=== PATIENT | male | born 1935 | race Caucasian/White ===

== ENCOUNTER 2017-08-17 08:27 | Inpatient (IN) | payer MEDICARE ==
[~2017-08-17] VITALS: Ht 180.3 cm; Wt 97.4 kg
[2017-08-17] MEDS ORDERED: NORVASC 10MG10 MG PO (08:37)
[2017-08-17 08:56] LABS: PROTHROMBIN TIME 11.2 SECONDS (9.7-12.8)
[2017-08-17 08:58] LABS: BASO % 0.4 % (0.0-2.0); EOS # 0.3 (0.0-0.7); EOS % 3.2 % (0-4.0); GRAN # 5.9 (1.4-6.5); GRAN % 71.8 % (42.2-75.2); HEMOGLOBIN 12.4 g/dl (13.5-18.0); LYMPH # 1.3 (1.2-3.4); LYMPH % 15.3 % (20.0-51.0); MEAN CELL VOLUME 87 fl (80.0-100.0); MEAN CORPUSCULAR HEMOGLOBIN 29 pg (27.0-31.0); MEAN CORPUSCULAR HGB CONC 34 g/dl (33.0-37.0); MONO # 0.7 (0.1-0.6); MONO % 8.8 % (1.7-9.3); PARTIAL THROMBOPLASTIN TIME 30.7 SECONDS (26.0-37.0); PLATELET COUNT 215 K/mm3 (130-400); RED BLOOD COUNT 4.22 M/mm3 (4.20-5.60); REDCELL DISTRIBUTION WIDTH-CV 14.4 % (11.5-14.5)
[2017-08-17 08:59] LABS: HEMATOCRIT 36.8 % (42.0-52.0)
[2017-08-17 09:08] LABS: ALANINE AMINOTRANSFERASE 82 U/L (21-72); ALBUMIN 3.8 gm/dL (3.5-5.0); ALKALINE PHOSPHATASE 72 U/L (50-136); ANION GAP 12 mmol/L (7-16); AST,SGOT 131 U/L (15-37); BILIRUBIN,TOTAL 0.7 mg/dL (0.0-1.0); BLOOD UREA NITROGEN 22 mg/dL (9-20); CALCIUM 9.1 mg/dL (8.4-10.2); CARBON DIOXIDE 28 mmol/L (22-30); CHLORIDE 101 mmol/L (98-107); CREATININE, serum 1.04 mg/dL (0.66-1.25); GLUCOSE 97 mg/dL (74-106); LIPASE 343 U/L (23-300); POTASSIUM 3.4 mmol/L (3.4-5.0); SODIUM 141 mmol/L (137-145); TOTAL PROTEIN 7.2 gm/dL (6.4-8.2)
[2017-08-17 09:21] LABS: TROPONIN-I < 0.012 ng/mL (0.000-0.034)
[2017-08-17 11:19] VITALS: BP 161/73; PULSE 84; TEMP 99
[2017-08-17] MEDS ORDERED: MULTI VITAMINS1 TAB PO (11:42)
[2017-08-17] MEDS ORDERED: ALEVE 220MG220 MG PO (11:42)
[2017-08-17 17:54] VITALS: BP 151/97; PULSE 74; TEMP 99.1
[2017-08-17 19:39] VITALS: BP 150/59; PULSE 77; TEMP 98.2
[2017-08-18] VITALS (7 sets, daily range): BP systolic 111–154; BP diastolic 52–94; PULSE 65–76; TEMP 97.8–98.8
[2017-08-18 06:48] LABS: BASO % 0.5 % (0.0-2.0); EOS # 0.1 (0.0-0.7); EOS % 1.9 % (0-4.0); GRAN # 3.8 (1.4-6.5); HEMOGLOBIN 10.8 g/dl (13.5-18.0); LYMPH # 1.7 (1.2-3.4); LYMPH % 26.2 % (20.0-51.0); MEAN CELL VOLUME 86 fl (80.0-100.0); MEAN CORPUSCULAR HEMOGLOBIN 29 pg (27.0-31.0); MEAN CORPUSCULAR HGB CONC 34 g/dl (33.0-37.0); MEAN PLATELET VOLUME 9.2 fl (7.4-10.4); MONO # 0.8 (0.1-0.6); MONO % 12.1 % (1.7-9.3); PLATELET COUNT 172 K/mm3 (130-400); RED BLOOD COUNT 3.73 M/mm3 (4.20-5.60); REDCELL DISTRIBUTION WIDTH-CV 14.4 % (11.5-14.5)
[2017-08-18 06:52] LABS: HEMATOCRIT 32.1 % (42.0-52.0)
[2017-08-18 06:59] LABS: ALBUMIN 3.3 gm/dL (3.5-5.0); BILIRUBIN,TOTAL 0.7 mg/dL (0.0-1.0); CALCIUM 7.8 mg/dL (8.4-10.2); CHOLESTEROL RISK RATIO 5.2; CREATININE, serum 0.89 mg/dL (0.66-1.25); MAGNESIUM 1.9 mg/dL (1.6-2.3); POTASSIUM 3.5 mmol/L (3.4-5.0); TOTAL PROTEIN 6.3 gm/dL (6.4-8.2)
[2017-08-19] VITALS (8 sets, daily range): BP systolic 127–145; BP diastolic 56–71; PULSE 60–79; TEMP 97.8–98.7
[2017-08-19 06:35] LABS: BASO % 0.5 % (0.0-2.0); EOS # 0.3 (0.0-0.7); EOS % 4.9 % (0-4.0); GRAN % 50.4 % (42.2-75.2); HEMOGLOBIN 11.8 g/dl (13.5-18.0); LYMPH # 1.7 (1.2-3.4); LYMPH % 28.6 % (20.0-51.0); MEAN CELL VOLUME 87 fl (80.0-100.0); MEAN CORPUSCULAR HEMOGLOBIN 29 pg (27.0-31.0); MEAN CORPUSCULAR HGB CONC 33 g/dl (33.0-37.0); MEAN PLATELET VOLUME 9.1 fl (7.4-10.4); MONO # 0.9 (0.1-0.6); MONO % 15.3 % (1.7-9.3); PLATELET COUNT 195 K/mm3 (130-400); RED BLOOD COUNT 4.12 M/mm3 (4.20-5.60); REDCELL DISTRIBUTION WIDTH-CV 14.3 % (11.5-14.5)
[2017-08-19 06:48] LABS: ALBUMIN 3.6 gm/dL (3.5-5.0); BILIRUBIN,TOTAL 0.4 mg/dL (0.0-1.0); CALCIUM 8.4 mg/dL (8.4-10.2); CREATININE, serum 0.94 mg/dL (0.66-1.25); TOTAL PROTEIN 6.7 gm/dL (6.4-8.2)
[2017-08-19 06:53] LABS: POTASSIUM 3.3 mmol/L (3.4-5.0)
[2017-08-20] VITALS (13 sets, daily range): BP systolic 132–171; BP diastolic 55–107; PULSE 60–114; TEMP 96.6–98.5
[2017-08-20 07:03] LABS: BASO % 0.5 % (0.0-2.0); EOS # 0.4 (0.0-0.7); EOS % 6.9 % (0-4.0); GRAN # 2.9 (1.4-6.5); GRAN % 47.1 % (42.2-75.2); HEMOGLOBIN 12.2 g/dl (13.5-18.0); LYMPH % 32.3 % (20.0-51.0); MEAN CELL VOLUME 87 fl (80.0-100.0); MEAN CORPUSCULAR HEMOGLOBIN 29 pg (27.0-31.0); MEAN CORPUSCULAR HGB CONC 33 g/dl (33.0-37.0); MEAN PLATELET VOLUME 9.2 fl (7.4-10.4); MONO # 0.8 (0.1-0.6); MONO % 12.9 % (1.7-9.3); PLATELET COUNT 212 K/mm3 (130-400); RED BLOOD COUNT 4.23 M/mm3 (4.20-5.60); REDCELL DISTRIBUTION WIDTH-CV 14.2 % (11.5-14.5)
[2017-08-20 07:11] LABS: HEMATOCRIT 36.6 % (42.0-52.0)
[2017-08-20 07:14] LABS: ALBUMIN 3.7 gm/dL (3.5-5.0); BILIRUBIN,TOTAL 0.3 mg/dL (0.0-1.0); CALCIUM 8.3 mg/dL (8.4-10.2); CREATININE, serum 0.96 mg/dL (0.66-1.25); POTASSIUM 3.5 mmol/L (3.4-5.0)
[2017-08-21 03:43] VITALS: BP 144/64; PULSE 70; TEMP 97.9
[2017-08-21 06:57] LABS: HEMOGLOBIN 11.5 g/dl (13.5-18.0); MEAN CELL VOLUME 86 fl (80.0-100.0); MEAN CORPUSCULAR HEMOGLOBIN 29 pg (27.0-31.0); MEAN CORPUSCULAR HGB CONC 34 g/dl (33.0-37.0); MEAN PLATELET VOLUME 9.6 fl (7.4-10.4); PLATELET COUNT 228 K/mm3 (130-400); RED BLOOD COUNT 3.94 M/mm3 (4.20-5.60); REDCELL DISTRIBUTION WIDTH-CV 14.2 % (11.5-14.5)
[2017-08-21 07:03] LABS: ALBUMIN 3.7 gm/dL (3.5-5.0); BILIRUBIN,TOTAL 0.5 mg/dL (0.0-1.0); CALCIUM 8.2 mg/dL (8.4-10.2); CREATININE, serum 0.84 mg/dL (0.66-1.25); POTASSIUM 3.5 mmol/L (3.4-5.0); TOTAL PROTEIN 7.1 gm/dL (6.4-8.2)
[2017-08-21 07:18] LABS: HEMATOCRIT 33.8 % (42.0-52.0)
[2017-08-21 07:42] VITALS: BP 134/96; BP 144/68; PULSE 83; TEMP 98.4
[2017-08-21 09:47] LABS: BAND 22 % (0-10); LYMPHOCYTE 11 % (20.0-51.0); NEUTROPHILS 56 % (42.0-75.2); PLATELET ESTIMATE NORMAL (NORMAL)
[2017-08-21 11:15] VITALS: BP 175/76; BP 175/763; PULSE 78; TEMP 98
[2017-08-21 15:34] VITALS: BP 155/68; PULSE 77; TEMP 98.4
[2017-08-21 20:04] VITALS: BP 158/81; PULSE 84; TEMP 97.7
[2017-08-21 22:25] LABS: HEMOGLOBIN 12.1 g/dl (13.5-18.0); MEAN CELL VOLUME 85 fl (80.0-100.0); MEAN CORPUSCULAR HEMOGLOBIN 29 pg (27.0-31.0); MEAN CORPUSCULAR HGB CONC 34 g/dl (33.0-37.0); MEAN PLATELET VOLUME 9.1 fl (7.4-10.4); PLATELET COUNT 230 K/mm3 (130-400); RED BLOOD COUNT 4.15 M/mm3 (4.20-5.60); REDCELL DISTRIBUTION WIDTH-CV 14.3 % (11.5-14.5)
[2017-08-21 22:26] LABS: HEMATOCRIT 35.4 % (42.0-52.0)
[2017-08-21 22:40] LABS: ALBUMIN 3.6 gm/dL (3.5-5.0); BILIRUBIN,TOTAL 0.8 mg/dL (0.0-1.0); CALCIUM 8.2 mg/dL (8.4-10.2); CREATININE, serum 0.83 mg/dL (0.66-1.25); POTASSIUM 3.3 mmol/L (3.4-5.0); TOTAL PROTEIN 6.8 gm/dL (6.4-8.2)
[2017-08-21 22:49] LABS: BAND 2 % (0-10); LYMPHOCYTE 11 % (20.0-51.0); NEUTROPHILS 85 % (42.0-75.2)
[2017-08-21 22:50] LABS: HYPOCHROMIA 1+; PLATELET ESTIMATE NORMAL (NORMAL)
[2017-08-22] VITALS (11 sets, daily range): BP systolic 109–151; BP diastolic 41–69; PULSE 58–87; TEMP 98–99.5
[2017-08-22 06:55] LABS: HEMOGLOBIN 10.8 g/dl (13.5-18.0); MEAN CELL VOLUME 88 fl (80.0-100.0); MEAN CORPUSCULAR HEMOGLOBIN 29 pg (27.0-31.0); MEAN CORPUSCULAR HGB CONC 33 g/dl (33.0-37.0); MEAN PLATELET VOLUME 9.5 fl (7.4-10.4); PLATELET COUNT 228 K/mm3 (130-400); RED BLOOD COUNT 3.74 M/mm3 (4.20-5.60); REDCELL DISTRIBUTION WIDTH-CV 14.6 % (11.5-14.5)
[2017-08-22 07:16] LABS: BILIRUBIN,TOTAL 0.5 mg/dL (0.0-1.0); CALCIUM 7.8 mg/dL (8.4-10.2); CREATININE, serum 0.88 mg/dL (0.66-1.25); POTASSIUM 3.5 mmol/L (3.4-5.0); TOTAL PROTEIN 6.5 gm/dL (6.4-8.2)
[2017-08-22 07:17] LABS: HEMATOCRIT 32.8 % (42.0-52.0)
[2017-08-22 07:30] LABS: ALBUMIN 3.3 gm/dL (3.5-5.0)
[2017-08-22 11:11] LABS: BAND 18 % (0-10); LYMPHOCYTE 4 % (20.0-51.0); NEUTROPHILS 76 % (42.0-75.2)
[2017-08-22 11:12] LABS: PLATELET ESTIMATE NORMAL (NORMAL)
[2017-08-23 00:08] VITALS: BP 148/64; PULSE 73; TEMP 98.2
[2017-08-23 03:13] VITALS: BP 140/61; PULSE 71; TEMP 97.7
[2017-08-23 06:52] LABS: HEMOGLOBIN 10.1 g/dl (13.5-18.0); MEAN CELL VOLUME 88 fl (80.0-100.0); MEAN CORPUSCULAR HEMOGLOBIN 29 pg (27.0-31.0); MEAN CORPUSCULAR HGB CONC 33 g/dl (33.0-37.0); MEAN PLATELET VOLUME 9.6 fl (7.4-10.4); PLATELET COUNT 226 K/mm3 (130-400); RED BLOOD COUNT 3.44 M/mm3 (4.20-5.60); REDCELL DISTRIBUTION WIDTH-CV 14.7 % (11.5-14.5)
[2017-08-23 06:53] LABS: HEMATOCRIT 30.3 % (42.0-52.0)
[2017-08-23 07:01] LABS: ALBUMIN 2.9 gm/dL (3.5-5.0); BILIRUBIN,TOTAL 0.3 mg/dL (0.0-1.0); CALCIUM 7.6 mg/dL (8.4-10.2); CREATININE, serum 0.89 mg/dL (0.66-1.25); MAGNESIUM 2.1 mg/dL (1.6-2.3); POTASSIUM 3.3 mmol/L (3.4-5.0); TOTAL PROTEIN 5.8 gm/dL (6.4-8.2)
[2017-08-23 07:07] LABS: BAND 1 % (0-10); LYMPHOCYTE 20 % (20.0-51.0); NEUTROPHILS 77 % (42.0-75.2)
[2017-08-23 07:08] LABS: PLATELET ESTIMATE NORMAL (NORMAL)
[2017-08-23 07:53] VITALS: BP 145/54; PULSE 79; TEMP 98.4
[2017-08-23 12:11] VITALS: BP 123/56; PULSE 67; TEMP 98.5
[2017-08-23 19:34] VITALS: BP 142/57; PULSE 75; TEMP 98.5
[2017-08-23 23:53] VITALS: BP 149/71; PULSE 76; TEMP 98.2
[2017-08-24 03:27] VITALS: BP 149/63; PULSE 74; TEMP 97.6
[2017-08-24 06:57] LABS: HEMOGLOBIN 11.1 g/dl (13.5-18.0); MEAN CELL VOLUME 88 fl (80.0-100.0); MEAN CORPUSCULAR HEMOGLOBIN 29 pg (27.0-31.0); MEAN CORPUSCULAR HGB CONC 33 g/dl (33.0-37.0); MEAN PLATELET VOLUME 9.4 fl (7.4-10.4); PLATELET COUNT 295 K/mm3 (130-400); RED BLOOD COUNT 3.86 M/mm3 (4.20-5.60); REDCELL DISTRIBUTION WIDTH-CV 14.6 % (11.5-14.5)
[2017-08-24 07:08] LABS: HEMATOCRIT 33.8 % (42.0-52.0)
[2017-08-24 07:10] LABS: ALBUMIN 3.2 gm/dL (3.5-5.0); BILIRUBIN,TOTAL 0.3 mg/dL (0.0-1.0); CREATININE, serum 0.82 mg/dL (0.66-1.25); POTASSIUM 3.6 mmol/L (3.4-5.0); TOTAL PROTEIN 6.2 gm/dL (6.4-8.2)
[2017-08-24 07:28] VITALS: BP 153/66; PULSE 72; TEMP 98.1
[2017-08-24 07:39] LABS: BAND 4 % (0-10); EOSINOPHIL 2 % (0-4); LYMPHOCYTE 17 % (20.0-51.0); NEUTROPHILS 73 % (42.0-75.2)
[2017-08-24 07:40] LABS: PLATELET ESTIMATE NORMAL (NORMAL)
[2017-08-24 12:20] VITALS: BP 148/72; PULSE 61; TEMP 98.3
[2017-08-24] MEDS ORDERED: LIPITOR20 MG PO (16:09)
[2017-08-24] MEDS ORDERED: PROAIR HFA0.09 MG/AC IH (16:10)
[2017-08-24] MEDS ORDERED: ASPI325T6 PO (16:10)
== END 2017-08-24 17:30 | disposition home or self-care (01) | DRG 411 ==
LOC: COL.ER 08:27 → MEDICAL 09:26
PROVIDERS: Emergency Medicine; Internal Medicine; Nurse Practitioner Family; Physician Assistant; Surgery
PROC: 0FT44ZZ Resection of Gallbladder, Percutaneous Endoscopic Approach (ICD-10-PCS; principal; 2017-08-20 11:00)
PROC: 0F9940Z Drainage of Common Bile Duct with Drainage Device, Percutaneous Endoscopic Approach (ICD-10-PCS; 2017-08-22)
PROC: 0FC98ZZ Extirpation of Matter from Common Bile Duct, Via Natural or Artificial Opening Endoscopic (ICD-10-PCS; 2017-08-23)
PROC: 0F798DZ Dilation of Common Bile Duct with Intraluminal Device, Via Natural or Artificial Opening Endoscopic (ICD-10-PCS; 2017-08-23)
DX: K80.66 Calculus of gallbladder and bile duct with acute and chronic cholecystitis without obstruction (principal); K65.3 Choleperitonitis; K83.2 Perforation of bile duct; I69.351 Hemiplegia and hemiparesis following cerebral infarction affecting right dominant side; J95.812 Postprocedural air leak; R18.8 Other ascites; I10 Essential (primary) hypertension; Z87.891 Personal history of nicotine dependence; E87.6 Hypokalemia; I71.4 Abdominal aortic aneurysm, without rupture; R33.9 Retention of urine, unspecified; R09.02 Hypoxemia
CPT/HCPCS: OP; 99223-AI; 99232-AI; 99233-AI; A4314; A9502; C1769; C2625; G0378; G8978-GP; G8979-GP; J0690; J0696; J1100; J1650; J1885; J2270; J2405; J2704; J2710; J2765; J2785; J3010; J3480; J7030; J7050; J7120; Q9967

== ENCOUNTER 2017-10-07 13:13 | Day surgery (SDC) | payer MEDICARE ==
[~2017-10-07] VITALS: Ht 180.3 cm; Wt 95.6 kg
[~2017-10-07 13:13] MED LIST: ALEVE 220MG220 MG PO; ASPI325T6 PO; LIPITOR20 MG PO; MULTI VITAMINS1 TAB PO; NORVASC 10MG10 MG PO; PROAIR HFA0.09 MG/AC IH
[2017-10-07 13:38] VITALS: BP 144/86; PULSE 62; TEMP 97.7
[2017-10-07 14:38] VITALS: BP 144/75; PULSE 65; TEMP 97.1
[2017-10-07 14:45] VITALS: BP 126/79; PULSE 72
[2017-10-07 15:00] VITALS: BP 158/73; PULSE 69
[2017-10-07 15:15] VITALS: BP 153/90; PULSE 65
== END 2017-10-07 15:45 | disposition home or self-care (01) ==
LOC: SDCO 13:13
DX: Z46.59 Encounter for fitting and adjustment of other gastrointestinal appliance and device (principal); K80.50 Calculus of bile duct without cholangitis or cholecystitis without obstruction; K31.9 Disease of stomach and duodenum, unspecified
CPT/HCPCS: C1769; J2704; J7030; Q9967

== ENCOUNTER → 2017-11-29 | Outpatient (CLI) | payer MEDICARE | LOC: COL.RAD 12:58 | DX: M75.101 Unspecified rotator cuff tear or rupture of right shoulder, not specified as traumatic (principal); M19.071 Primary osteoarthritis, right ankle and foot; S46.811A Strain of other muscles, fascia and tendons at shoulder and upper arm level, right arm, initial encounter; M62.58 Muscle wasting and atrophy, not elsewhere classified, other site ==

== ENCOUNTER → 2019-03-31 | Outpatient (CLI) | payer MEDICARE | LOC: COL.RAD 12:04 | DX: R22.42 Localized swelling, mass and lump, left lower limb (principal) ==

== ENCOUNTER → 2019-04-14 | Outpatient (CLI) | payer MEDICARE ==
--- NOTE | 2019-04-13 08:20 | NUR ---
LMOM ON DAUGHTERS PHONE, LISTED ATE AND TIME OF PROCEDURE
[~2019-04-14] VITALS: Ht 180.3 cm; Wt 101.8 kg
[~2019-04-14] MED LIST changes: +ASPIRIN E.C. 8181 MG PO; +MICARDIS40 MG PO; +TOPROL XL 25MG25 MG PO
[2019-04-14 07:06] VITALS: BP 150/76; PULSE 65
[2019-04-14 08:08] VITALS: BP 140/85; PULSE 62
--- NOTE | 2019-04-14 09:12 | NUR ---
PT LEAVES AMBULATORY WITH DIL
== END ==
LOC: COL.RAD 04-11 08:15
DX: R22.42 Localized swelling, mass and lump, left lower limb (principal)

== ENCOUNTER 2021-06-27 06:26 | Day surgery (SDC) | payer MEDICARE ==
[~2021-06-27] VITALS: Ht 180.3 cm; Wt 101.9 kg
[2021-06-27 06:14] VITALS: BP 148/77; PULSE 69; TEMP 97.7
[2021-06-27 08:05] VITALS: BP 139/94; PULSE 64; TEMP 97
--- NOTE | 2021-06-27 08:05 | NUR ---
Pt arrived from procedure drowsy but oriented. Pt was asssisted with ambulating from cart to chair with minimal difficulty. Monitors applied and VSS. Visitor is present. Verbal room report obtained. Pt denies nausea, stomach discomfort and pain. Pt oriented to room and call light, within reach.
[2021-06-27 08:20] VITALS: BP 145/79; PULSE 61
--- NOTE | 2021-06-27 08:20 | NUR ---
LEILA. Pt is sleeping in his chair. Call paige remains within reach.
[2021-06-27 08:35] VITALS: BP 149/80; PULSE 55
--- NOTE | 2021-06-27 08:35 | NUR ---
VSS. Pt is awake and alert. Pt served ice water and hot coffee per request. Call paige remains within reach.
[2021-06-27 08:50] VITALS: BP 144/79; PULSE 55
--- NOTE | 2021-06-27 08:50 | NUR ---
VSS. Pt continues to deny nausea, stomach pain and discomfort. Call paige remains within reach. Additional warm blankets applied.
[2021-06-27 09:20] VITALS: BP 157/79; PULSE 49
--- NOTE | 2021-06-27 09:20 | NUR ---
DC instructions and educational material reviewed with the pt, who verbalized understanding and signed the realted paperwork. IV discontinued. Catheter tip intact. Pressure bandage applied. No redness or swelling noted. Pt denied having any questions or concerns. Pt denied needing assistance changing into personal clothes. Awaiting ride. has spoken with the pt and said DC anytime. CAll paige remains within reach
--- NOTE | 2021-06-27 10:06 | NUR ---
Pt dismissed from endo via wheelchair by Delilah THIBODEAUX. Pt has personal belongings and DC packet, including personal medications and was transferred into the care of daughter in law Glenys, who is present to drive private car.
== END 2021-06-27 10:08 | disposition home or self-care (01) ==
LOC: SDCO 06:26
DX: K80.50 Calculus of bile duct without cholangitis or cholecystitis without obstruction (principal); K31.9 Disease of stomach and duodenum, unspecified; R93.3 Abnormal findings on diagnostic imaging of other parts of digestive tract; F17.210 Nicotine dependence, cigarettes, uncomplicated
CPT/HCPCS: C1769; J2704; J7030; Q9967